=== PATIENT | female | born 1955 | race African-American/Black ===

== ENCOUNTER → 2017-09-07 | Outpatient (CLI) | payer MEDICARE, MEDICAID ==
[~2017-09-07] MED LIST: FURO-151; METF500T4; OMEP20TA2; SERT25TA; VALS40TA4
== END | disposition home or self-care (01) ==
LOC: NM 08:29
PROVIDERS: ATTEND Internal Medicine
DX: R27.9 Unspecified lack of coordination (principal); Z85.89 Personal history of malignant neoplasm of other organs and systems
CPT/HCPCS: 78306; A9503